=== PATIENT | male | born 1955 | race Caucasian/White ===

== ENCOUNTER → 2018-12-12 | Outpatient (CLI) | payer OTHER ==
[~2018-12-12] MED LIST: ASPIR 8181 MG PO; CENTRUM SILVER1 EAC2 PO; LIPITOR 20 MG T20 M1 PO; TACLONEX OINTME60 GM; [UNRECOGNIZED DRUG - CODE]
== END ==
LOC: ULTRA 09:20
DX: Z01.810 Encounter for preprocedural cardiovascular examination (principal); I35.1 Nonrheumatic aortic (valve) insufficiency

== ENCOUNTER 2018-12-26 05:25 | Inpatient (IN) | payer OTHER ==
[2018-12-12 08:36] LABS: ABSOLUTE NEUTROPHILS 2.5 thou/uL (1.4-8.2); BASOPHILS 0.7 % (0.0-2.0); EOSINOPHILS 3.2 % (0.0-3.0); HEMATOCRIT 45.1 % (42.0-52.0); HEMOGLOBIN 15.8 gm/dL (14.0-18.0); LYMPHOCYTES 39.1 % (24.0-44.0); MCH 31.5 pg (26.0-34.0); MCHC 34.9 g/dL (28.0-37.0); MCV 90.2 fL (80.0-100.0); MONOCYTES 11.1 % (1.0-8.0); PLATELET COUNT 132 thou/uL (150-400); POLYS 45.9 % (36.0-66.0); RDW 13.2 % (10.5-14.5); URINE BILIRUBIN NEGATIVE (Negative); URINE BLOOD NEGATIVE (Negative); URINE CLARITY CLEAR; URINE COLOR YELLOW; URINE GLUCOSE-RANDOM* NEGATIVE (Negative); URINE KETONES NEGATIVE (Negative); URINE LEUKOCYTES-REFLEX NEGATIVE (Negative); URINE NITRITE-REFLEX NEGATIVE (Negative); URINE PROTEIN (DIPSTICK) NEGATIVE (Negative); URINE SPECIFIC GRAVITY 1.025 (1.005-1.035); URINE UROBILINOGEN 0.2 E.U./dl (0.2-1.0); WBC 5.5 thou/uL (4.0-11.0)
[2018-12-12 08:44] LABS: APTT 27.1 Seconds (24.5-32.8); PROTIME 10.4 Seconds (9.3-11.4)
[2018-12-12 08:45] LABS: ALBUMIN 4.1 g/dL (3.4-5.0); CALCIUM 8.7 mg/dL (8.5-10.1); POTASSIUM 4.6 mmol/L (3.5-5.1); TOTAL BILIRUBIN 0.6 mg/dL (<0.1-1.0); TOTAL PROTEIN 6.9 g/dL (6.4-8.2)
--- NOTE | 2018-12-12 09:19 | EKG ---
[place] [address] [place] [address] ELECTROCARDIOGRAM REPORT Name: ZELDACHRISTIANNE JACLYN Room #: PRE IN ..#: [id number] ������������������ Admission: ������������������ Attend Phys: Christianne Evans MD Discharge: ������������������ Date of : 57 Report #: [id number] ����������������������������������������������������������������� [id number] THIS REPORT FOR: //name// [facility] Test Date: 2018-12-12 Test Time: 08:30:59 Pat Name: CHRISTIANNE NDIAYE Department: Room: Gender: [employer]: bobby elizondo : 1955 Requested By: Christianne Evans Order Number: [id number] MD: Kana Louis Measurements Intervals [place] Rate: 75 P: 50 NC: 171 QRS: 24 QRSD: 114 T: 87 QT: 378 QTc: 423 Interpretive Statements Sinus rhythm Nonspecific ST and T wave abnormality No previous ECG available for comparison Electronically Signed On 12-12-2018 9:19:37 CDT by Kana Louis [email or web address] ��������������������������������������������� <ELECTRONICALLY SIGNED> ���������������������������������������� By: Kana Loius MD, [facility] ��������������������������������������������� 12/12/18 0919 0830 0830 Kana Louis MD, FAC /EPI
[2018-12-13 00:07] LABS: GLYCOHEMOGLOBIN (HGB A1C) 6.1 % (4.8-5.6)
[2018-12-26] VITALS (7 sets, daily range): BP systolic 103–146; BP diastolic 33–69
[~2018-12-26] VITALS: Ht 182.9 cm; Wt 120.7 kg
[2018-12-26 11:47] LABS: HEMATOCRIT 34.9 % (42.0-52.0); HEMOGLOBIN 12.1 gm/dL (14.0-18.0); MCH 31.7 pg (26.0-34.0); MCHC 34.6 g/dL (28.0-37.0); MCV 91.6 fL (80.0-100.0); RBC 3.81 mil/uL (4.50-6.00); RDW 13.3 % (10.5-14.5)
[2018-12-26 12:08] LABS: INR 1.4; PROTIME 14.1 Seconds (9.3-11.4)
[2018-12-26 12:55] LABS: POC BE -4 mmol/L (-2.0 to +3.0); POC CA IONIZED 4.3 mg/dL (4.5-5.3); POC GLUCOSE 135 mg/dL (70-99); POC HCO3 23.1 mmol/L (22.0-26.0); POC HEMOGLOBIN 13.3 g/dL (14.0-18.0); POC POTASSIUM 4.5 mmol/L (3.5-5.1); POC SODIUM 141 mmol/L (136-145); POC pCO2 48.4 mmHg (35.0-45.0); POC pH 7.287 (7.360-7.450)
[2018-12-26 12:55] LABS: POC BE -3 mmol/L (-2.0 to +3.0); POC CA IONIZED 4.3 mg/dL (4.5-5.3); POC GLUCOSE 160 mg/dL (70-99); POC HCO3 23.2 mmol/L (22.0-26.0); POC HEMOGLOBIN 11.2 g/dL (14.0-18.0); POC POTASSIUM 4.6 mmol/L (3.5-5.1); POC SODIUM 141 mmol/L (136-145); POC pCO2 44.4 mmHg (35.0-45.0); POC pH 7.326 (7.360-7.450)
[2018-12-26 12:55] LABS: POC BE -1 mmol/L (-2.0 to +3.0); POC CA IONIZED 3.9 mg/dL (4.5-5.3); POC GLUCOSE 133 mg/dL (70-99); POC HCO3 24.3 mmol/L (22.0-26.0); POC HEMOGLOBIN 11.6 g/dL (14.0-18.0); POC POTASSIUM 6.6 mmol/L (3.5-5.1); POC SODIUM 135 mmol/L (136-145); POC pCO2 41.2 mmHg (35.0-45.0)
[2018-12-26 12:55] LABS: POC BE 0 mmol/L (-2.0 to +3.0); POC CA IONIZED 4.6 mg/dL (4.5-5.3); POC GLUCOSE 137 mg/dL (70-99); POC HCO3 25.6 mmol/L (22.0-26.0); POC HEMOGLOBIN 14.3 g/dL (14.0-18.0); POC POTASSIUM 5.3 mmol/L (3.5-5.1); POC SODIUM 139 mmol/L (136-145); POC pCO2 49.2 mmHg (35.0-45.0); POC pH 7.324 (7.360-7.450)
[2018-12-26 12:55] LABS: POC BE -2 mmol/L (-2.0 to +3.0); POC CA IONIZED 3.9 mg/dL (4.5-5.3); POC GLUCOSE 167 mg/dL (70-99); POC HCO3 23.3 mmol/L (22.0-26.0); POC HEMOGLOBIN 12.2 g/dL (14.0-18.0); POC POTASSIUM 5.5 mmol/L (3.5-5.1); POC SODIUM 140 mmol/L (136-145); POC pH 7.395 (7.360-7.450)
[2018-12-26 12:55] LABS: POC BE -1 mmol/L (-2.0 to +3.0); POC CA IONIZED 3.9 mg/dL (4.5-5.3); POC GLUCOSE 136 mg/dL (70-99); POC HCO3 24.1 mmol/L (22.0-26.0); POC HEMOGLOBIN 12.2 g/dL (14.0-18.0); POC POTASSIUM 5.9 mmol/L (3.5-5.1); POC SODIUM 138 mmol/L (136-145); POC pCO2 38.5 mmHg (35.0-45.0); POC pH 7.405 (7.360-7.450)
[2018-12-26 12:55] LABS: POC BE -1 mmol/L (-2.0 to +3.0); POC CA IONIZED 4.5 mg/dL (4.5-5.3); POC GLUCOSE 137 mg/dL (70-99); POC HEMOGLOBIN 13.9 g/dL (14.0-18.0); POC SODIUM 138 mmol/L (136-145); POC pCO2 48.2 mmHg (35.0-45.0); POC pH 7.322 (7.360-7.450)
[2018-12-26 12:55] LABS: POC BE -2 mmol/L (-2.0 to +3.0); POC CA IONIZED 4.1 mg/dL (4.5-5.3); POC GLUCOSE 128 mg/dL (70-99); POC HCO3 23.4 mmol/L (22.0-26.0); POC HEMOGLOBIN 11.9 g/dL (14.0-18.0); POC POTASSIUM 6.6 mmol/L (3.5-5.1); POC SODIUM 136 mmol/L (136-145); POC pCO2 42.9 mmHg (35.0-45.0); POC pH 7.344 (7.360-7.450)
[2018-12-26 12:55] LABS: POC BE 0 mmol/L (-2.0 to +3.0); POC CA IONIZED 3.7 mg/dL (4.5-5.3); POC GLUCOSE 171 mg/dL (70-99); POC HCO3 24.6 mmol/L (22.0-26.0); POC HEMOGLOBIN 12.6 g/dL (14.0-18.0); POC POTASSIUM 5.3 mmol/L (3.5-5.1); POC SODIUM 138 mmol/L (136-145); POC pCO2 38.6 mmHg (35.0-45.0); POC pH 7.412 (7.360-7.450)
[2018-12-26 13:38] LABS: HEMATOCRIT 41.2 % (42.0-52.0); MCV 91.3 fL (80.0-100.0); RBC 4.51 mil/uL (4.50-6.00); RDW 13.4 % (10.5-14.5); WBC 14.9 thou/uL (4.0-11.0)
[2018-12-26 13:39] LABS: BE(vivo) -6.6 mmol/L (-2 to +3); HCO3 21.4 mmol/L (22.0-26.0); PCO2 52.4 mmHg (35.0-45.0); PO2 98.2 mmHg (80.0-100.0); sO2 96.2 % (92.0-98.0)
[2018-12-26 13:40] LABS: pH 7.228 (7.360-7.450)
[2018-12-26 13:54] LABS: INR 1.1; PROTIME 11.9 Seconds (9.3-11.4)
[2018-12-26 14:12] LABS: CREATININE 1.3 mg/dL (0.7-1.3)
[2018-12-26 14:13] LABS: MAGNESIUM 2.5 mg/dL (1.8-2.4)
--- NOTE | 2018-12-26 14:36 | NUR ---
1313-RECEIVED PT FROM O.R. W OPEN HEART TEAM IN ATTENDANCE.--VW 1345-450ML OUT FROM MST'S. INFORMED (VIA ARMANDO IN O.R.) OF BLEEDING.PLAN TO TAKE BACK & EXPLORE. O.R. INFORMED.--VW 1405-OPEN HEART TEAM IN ROOM.--VW 1418-TO O.R. FULLY MONITORED W OPEN HEART TEAM.--VW SUMMARY-PT WOKE SHORTLY AFTER ARRIVAL INTO UNIT.NOT FOLLOWING COMMANDS.BECAME INCREASINGLY RESTLESS,THRASHING HEAD BACK & FORTH.OS SL LARGER THAN OD,BOTH REACTIVE.KNIGHT STRONGLY.CARDENE,PROPOFOL OFF & ON. 2 ALBUMINS GIVEN FOR VOLUME SUPPORT.--VW
[2018-12-26 16:04] LABS: POC BE -8 mmol/L (-2.0 to +3.0); POC CA IONIZED 3.8 mg/dL (4.5-5.3); POC GLUCOSE 175 mg/dL (70-99); POC HCO3 19.3 mmol/L (22.0-26.0); POC HEMOGLOBIN 11.6 g/dL (14.0-18.0); POC POTASSIUM 5.5 mmol/L (3.5-5.1); POC SODIUM 142 mmol/L (136-145); POC pCO2 44.6 mmHg (35.0-45.0); POC pH 7.243 (7.360-7.450)
[2018-12-26 16:04] LABS: POC BE -7 mmol/L (-2.0 to +3.0); POC CA IONIZED 3.8 mg/dL (4.5-5.3); POC GLUCOSE 175 mg/dL (70-99); POC HCO3 20.9 mmol/L (22.0-26.0); POC HEMOGLOBIN 11.9 g/dL (14.0-18.0); POC POTASSIUM 5.2 mmol/L (3.5-5.1); POC SODIUM 143 mmol/L (136-145); POC pCO2 49.6 mmHg (35.0-45.0); POC pH 7.232 (7.360-7.450)
[2018-12-26 16:04] LABS: POC BE -7 mmol/L (-2.0 to +3.0); POC CA IONIZED 4.2 mg/dL (4.5-5.3); POC GLUCOSE 174 mg/dL (70-99); POC HEMOGLOBIN 12.2 g/dL (14.0-18.0); POC POTASSIUM 4.4 mmol/L (3.5-5.1); POC SODIUM 144 mmol/L (136-145); POC pCO2 56.1 mmHg (35.0-45.0); POC pH 7.181 (7.360-7.450)
[2018-12-26 16:54] LABS: BE(vivo) -8.2 mmol/L (-2 to +3); HCO3 18.2 mmol/L (22.0-26.0); PCO2 40.5 mmHg (35.0-45.0); pH 7.271 (7.360-7.450); sO2 96.4 % (92.0-98.0)
[2018-12-26 17:34] LABS: HCO3 19.3 mmol/L (22.0-26.0); PCO2 37.4 mmHg (35.0-45.0); pH 7.331 (7.360-7.450); sO2 97.8 % (92.0-98.0)
--- NOTE | 2018-12-26 19:12 | NUR ---
1635-RECEIVED FROM O.R. W OPEN HEART TEAM IN ATTENDANCE, S/P EXPLORATION OF CHEST.SEE CCFS B/4.--VW 1740-FAMILY IN,LOTS OF TIME EXPLAINING POC.GIVEN SLEEP ROOM FOR THE NIGHT.--VW 1850-WOKE SUDDENLY,THRASHING,WILD,KNIGHT BUT NOT FOLLOWING ANY COMMANDS.FENTANYL GIVEN FOR ? OP PAIN.HEMODYNAMICS STABLE. CARE TURNED OVER TO ONCOMING RN.--VW
--- NOTE | 2018-12-26 19:31 | NUR ---
IN,UPDATED.--VW
[2018-12-26 21:03] LABS: HEMATOCRIT 34.9 % (42.0-52.0)
[2018-12-26 21:11] LABS: BE(vivo) -3.8 mmol/L (-2 to +3); HCO3 20.7 mmol/L (22.0-26.0); PCO2 35.9 mmHg (35.0-45.0); PO2 104.2 mmHg (80.0-100.0); pH 7.379 (7.360-7.450); sO2 97.7 % (92.0-98.0)
[2018-12-26 23:32] LABS: BE(vivo) -4.9 mmol/L (-2 to +3); PCO2 36.7 mmHg (35.0-45.0); PO2 82.7 mmHg (80.0-100.0); pH 7.354 (7.360-7.450); sO2 95.8 % (92.0-98.0)
[2018-12-27 01:01] LABS: HCO3 21.6 mmol/L (22.0-26.0); PCO2 41.4 mmHg (35.0-45.0); PO2 64.3 mmHg (80.0-100.0); pH 7.335 (7.360-7.450); sO2 91.3 % (92.0-98.0)
[2018-12-27 06:01] LABS: HEMATOCRIT 32.4 % (42.0-52.0); HEMOGLOBIN 11.3 gm/dL (14.0-18.0); MCH 31.9 pg (26.0-34.0); MCHC 34.9 g/dL (28.0-37.0); MCV 91.6 fL (80.0-100.0); RBC 3.54 mil/uL (4.50-6.00); RDW 13.7 % (10.5-14.5); WBC 9.2 thou/uL (4.0-11.0)
[2018-12-27 06:16] LABS: CALCIUM 7.1 mg/dL (8.5-10.1); CREATININE 1.2 mg/dL (0.7-1.3); MAGNESIUM 1.9 mg/dL (1.8-2.4); POTASSIUM 4.6 mmol/L (3.5-5.1)
[2018-12-27 06:25] LABS: CHOLESTEROL 114 mg/dL (<200); HDL CHOLESTEROL 32 mg/dL (>40); LDL CHOLESTEROL 64 mg/dL (<100); TC:HDL 3.6 Ratio (Not establshd); TRIGLYCERIDE 93 mg/dL (<150); VLDL 19 mg/dL (<40)
[2018-12-27 06:26] LABS: SERUM ASSESSMENT Clear
--- NOTE | 2018-12-27 06:35 | NUR ---
Pt progressing well with stable VS and adequate SpO2 on current FiO2. PRN fentanyl and hydrocodones given for c/o chest "soreness" with desired effect achieved. Large amount of chest tube drainage for shift and am lab results noted. Urine output adequate for shift. PRN zofran given for c/o intermittent nausea with desired effect achieved. Continue with POC.
[2018-12-27 07:53] VITALS: BP 104/65
--- NOTE | 2018-12-27 08:24 | EKG ---
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 WARD : 1955 Requested By: Johnny Arellano Order Number: [id number] MD: Kana Louis Measurements Intervals [place] Rate: 86 P: 64 [place]: 153 QRS: 39 QRSD: 101 T: 69 QT: 455 QTc: 545 Interpretive Statements Sinus rhythm Abnormal R-wave progression, early transition Prolonged QT interval Compared to ECG 12/12/2018 08:30:59 Prolonged QT interval now present Electronically Signed On 12-27-2018 8:23:57 CDT by Kana Louis [email or web address] ��������������������������������������������� <ELECTRONICALLY SIGNED> ���������������������������������������� By: Kana Louis MD, [facility] ��������������������������������������������� 12/27/18822 10 10 Kana Louis MD, [facility] /EPI
--- NOTE | 2018-12-27 08:31 | EKG ---
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1955 Requested By: Johnny Arellano Order Number: [id number] MD: Kana Louis Measurements Intervals [place] Rate: 89 P: 46 [place]: 134 QRS: 5 QRSD: 93 T: 1 QT: 374 QTc: 456 Interpretive Statements Sinus rhythm Ventricular premature complex Abnormal R-wave progression, early transition Left ventricular hypertrophy Nonspecific T wave abnormality Compared to ECG 12/12/2018 08:30:59 Ventricular premature complex(es) now present nonspecific change in the ST and T-wave segments Electronically Signed On 12-27-2018 8:31:44 CDT by Kana Louis [email or web address] ��������������������������������������������� <ELECTRONICALLY SIGNED> ���������������������������������������� By: Kana Louis MD, [facility] ��������������������������������������������� 12/27/18 0831 0741 0741 Kana Louis MD, [facility] /EPI
[2018-12-27 08:49] LABS: HEMATOCRIT 31.8 % (42.0-52.0); MCH 31.9 pg (26.0-34.0); MCHC 34.4 g/dL (28.0-37.0); MCV 92.5 fL (80.0-100.0); RBC 3.44 mil/uL (4.50-6.00); RDW 13.4 % (10.5-14.5); WBC 10.9 thou/uL (4.0-11.0)
[2018-12-27 08:59] LABS: APTT 26.8 Seconds (24.5-32.8); PROTIME 10.8 Seconds (9.3-11.4)
--- NOTE | 2018-12-27 09:27 | NUR ---
Nutrition: Pt POD 1 AVR. Consult received for diet education. RD will followup to determine education needs when out of ICU.
--- NOTE | 2018-12-27 15:32 | NUR ---
PT UP TO CHAIR THIS AM, TOLERATED WELL. HAVING SOME SANGUOINOUS DRAINAGE AROUND CHEST TUBE INSERTION SITES LEFT>RIGHT. SHORTLY AFTER GETTING UP, PT WAS BELCHING C/O NAUSEA AND BEGAN TO DRY HEAVE. PT BECAME RED IN THE FACE AND BECAME APNEIC AND NONRESPONSIVE. CODE BLUE INITIATED AND APPROX 5 SECONDS LATER PT WAS BREATHING AND BEGAN HAVING SZ LIKE ACTIVITY AND THEN WENT INTO POST-ICTAL SNORE, 15L NONREBREATHING APPLIED TO PT. PT WOKE UP AND ORIENTED APPROX 2 MINUTES LATER. IT APPEARS THAT PT VASO-VAGALED AND CAUSE TRANSIENT DROP IN BLOOD PRESSURE. 500 IV ALBUMIN GIVEN, VITALS IMPROVED. DR BARCENAS, MICHELE FOSTER, AND DR JAY AT BEDSIDE AFTER CODE BLUE CALLED, ORDERS RECEIVED AND IMPLEMENTED.
[2018-12-27 16:40] LABS: HEMATOCRIT 30.1 % (42.0-52.0); HEMOGLOBIN 10.5 gm/dL (14.0-18.0); MCHC 34.9 g/dL (28.0-37.0); MCV 91.6 fL (80.0-100.0); RBC 3.29 mil/uL (4.50-6.00); RDW 13.9 % (10.5-14.5); WBC 9.8 thou/uL (4.0-11.0)
[2018-12-27 16:49] LABS: APTT 28.2 Seconds (24.5-32.8); INR 1.1
--- NOTE | 2018-12-27 18:18 | NUR ---
PT HAD REPEAT EPISODE OF SITTING UP AT EDGE OF CHAIR BEGAN HICCUPS, BELCHES AND BECAME NAUSEAOUS. PT BEGAN DRY HEAVING AND SUSPECTEDLY VASO-VAGALED THEN BECAME UNRESPONSIVE WITH SHORT SZ LIKE ACTIVITY AND THEN POST-ICTAL STATE REQUIRING NONREBREATHER APPLIED. PT AWOKE AFTER APPROX ONE MINUTE, A/O X 4 BUT DROWSY. ONCE FULLY AWAKE NONREBREATHER REMOVED, PT REMAINS ON 15L HFNC. ONE ALBUMIN GIVEN FOR BP SUPPORT. PT C/O STERNAL PAIN UNRELIEVED BY IV FENTANYL. NEW ORDERED FOR SCHEDULED IV TYLENOL. CHANGE OF CONDITION REPORTED TO CV NURSE MINH AND PT SEEN BY DR BARCENAS AND MICHELE ROBERTS.
--- NOTE | 2018-12-28 01:29 | NUR ---
ASSUMED CARE OF PT AT 1900. 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 PT SITTING IN CHAIR FOR THIS REASON, AT 2330 PT GOT UP WITH ASSIST X2 STAFF TO THE BED. PT WAS PREVIOUSLY MEDICATED WITH ZOFRAN. PT TOLERATED TRANSFER WELL. WILL CONTINUE TO MONITOR.
[2018-12-28 05:21] LABS: HEMATOCRIT 28.6 % (42.0-52.0); HEMOGLOBIN 9.8 gm/dL (14.0-18.0); MCH 31.5 pg (26.0-34.0); MCHC 34.3 g/dL (28.0-37.0); RBC 3.11 mil/uL (4.50-6.00); RDW 13.6 % (10.5-14.5); WBC 10.8 thou/uL (4.0-11.0)
[2018-12-28 05:33] LABS: CALCIUM 7.4 mg/dL (8.5-10.1); POTASSIUM 4.2 mmol/L (3.5-5.1)
--- NOTE | 2018-12-28 08:29 | NUR ---
CM ASSESSMENT: CASE OPENED FOR DC PLANNING. CLINICAL INFO REVIEWED. PT IS POD #2 AVR. LIVES IN HOUSE WITH SPOUSE, INDEPENDENT WITH ADLS, NO DME OR PREVIOUS HH. PT RECENTLY RETIRED. WORKING WITH PT/OT AND WILL FOLLOW TO COORDINATE ANY DC NEEDS. LIKELY HOME WITH NO NEEDS AT DC.
[2018-12-28 08:41] VITALS: BP 131/73
--- NOTE | 2018-12-28 10:00 | NUR ---
Pt was assisted up to the bedside chair without incident. Pt was premedicated with Zofran and IV Tylenol for pain/nausea prior to getting out of bed. Pt reported decrease in pain and increased relaxation followig the medications. Pt able to eat a portion of his breakfast. Pt working on his IS-max volume 750 ml.
--- NOTE | 2018-12-28 14:15 | NUR ---
Pt was assisted back to bed for removal of mediastinal tubes by Jerry (PA with Dr Evans). Pacemaker wires also removed. Remains on 10 liter high flow nasal cannula.
--- NOTE | 2018-12-28 15:45 | NUR ---
Pt had rhythm change to atrial fibrillation with RVR. Dr Barreto at bedside. Cardizem 5 mg bolus was given IV (see emar) to be followed by Cardizem gtt. Pt placed on BIPAP by RT. Pt had been placed on Optiflow following the removal of mediastinal tubes (60% FIO2 and 50 liters). Pt reporting mild chest discomfort at this time-Dr Evans aware.
--- NOTE | 2018-12-28 16:17 | NUR ---
AT BEDSIDE.CARDIZEM GTT UP TO 20MG/HR,AMIO GTT ORDERED.PT JOSE ANGEL BIPAP.--VW
[2018-12-28 16:18] VITALS: BP 131/73
--- NOTE | 2018-12-28 16:40 | O ---
[facility] [place] [address] OPERATIVE REPORT Name: CHRISTIANNE NDIAYE Room #: 247-P [facility] IN M.R.#: [id number] Admission: 12/26/18 ������������������ Attend Phys: Chirstianne Evans MD Discharge: ������������������ Date of : 57 Report #: [id number] THIS REPORT FOR: //name// CC: Christianne Arrington DATE OF SERVICE: 12/26/2018 PREOPERATIVE DIAGNOSIS: Bleeding, status post cardiac surgery. POSTOPERATIVE DIAGNOSIS: Bleeding, status post cardiac surgery. OPERATION: Exploration for bleeding. INDICATION: The patient, earlier in the day, had an aortic valve replacement. Unfortunately in the ICU, he had excessive chest tube drainage that mandated reexploration. The patient was taken to the operating room and prepped and draped. The incision was opened. There was some blood and clot in the mediastinum. There was no obvious source for this. The most impressive bleeder was an area of specific ooze from the posterior sternum on the left side. The patient gave the impression that he had a coagulopathic bleed and platelets and plasma were given. This improved the situation immensely. Blood and clot were extracted and the chest was irrigated. The chest was packed until we were confident that there were no sites of bleeding and then, the wound was irrigated and then closed in the usual fashion. The patient was returned to the Intensive Care Unit in satisfactory condition. All counts were reported as correct. ��������������������������������������������� <ELECTRONICALLY SIGNED> ���������������������������������������� By: Christianne Evans MD ��������������������������������������������� 12/28/18 1640 27 50 Christianne Evans MD /nt
--- NOTE | 2018-12-28 16:40 | O ---
[facility] [place] [address] OPERATIVE REPORT Name: CHRISTIANNE NDIAYE Room #: 247-P [facility] IN M.R.#: [id number] Admission: 12/26/18 ������������������ Attend Phys: Christianne Evans MD Discharge: ������������������ Date of : 57 Report #: [id number] THIS REPORT FOR: //name// CC: Christianne Guillen Nury DATE OF SERVICE: 12/26/2018 PREOPERATIVE DIAGNOSIS: Aortic valve incompetence of a bicuspid valve. POSTOPERATIVE DIAGNOSIS: Aortic valve incompetence of a bicuspid valve. OPERATION: Aortic valve replacement with 27 mm Beto-Nagel bioprosthesis. SURGEON: Christianne Evans MD. FAMILY SOCIOLOGIST: Jerry Arellano. ANESTHESIA: General. INDICATIONS: The patient is a 63-year-old with aortic incompetence and progressive shortness of breath. Echo shows a bicuspid aortic valve with important aortic incompetence. The coronary arteries are satisfactory. Catheterization was done by Dr. Christianne Zee. FINDINGS AND TECHNIQUE: After general anesthesia was established, exposure was obtained through median sternotomy. Pericardial well was made. Cannulation sutures were placed. Heparin was given. Aorta was cannulated. Right atrium was cannulated. Cardioplegia needle was positioned in the aortic root. Retrograde cardioplegic catheter was placed in coronary sinus. Cardiopulmonary bypass was established. The aorta was cross clamped. Antegrade and retrograde cardioplegia were given. Ice was poured in the pericardial well. The heart was stopped. During electromechanical arrest, the aortic valve was replaced and aortotomy was made. The bicuspid valve was excised. Interrupted Ethibond sutures were placed sequentially through the yerington annulus and then through the sewing ring of a 27 mm Beto-Nagel bioprosthesis chosen for both annular and patient's size. The valve was lowered into place and the sutures were secured with the Cor-Knot device. It should be mentioned that cardioplegia was given every 15 minutes through the retrograde cannula and directly into the right coronary artery. When the aortic valve was replaced, the aortotomy was closed with 2-layer [address] [address] OPERATIVE REPORT Name: ZELDACHRISTIANNE JACLYN Room #: 247-P [facility] IN M.R.#: [id number] Admission: 12/26/18 ������������������ Attend Phys: Christianne Evans MD Discharge: ������������������ Date of : 57 Report #: [id number] technique. Warm retrograde cardioplegia was given followed by warm continuous blood to the coronary sinus. When this infusion was complete, the crossclamp was removed, de-airing maneuvers were performed. The aortotomy was inspected and found to be satisfactory. Chest tubes and pacing wires were placed. When the patient was warmed, he was weaned from cardiopulmonary bypass. Venous cannula was removed. Protamine was given. Aortic cannula was removed. When hemostasis was satisfactory, chest was closed in the usual fashion. The patient was taken to the Intensive Care Unit, having tolerated the procedure well. All counts reported as correct. ��������������������������������������������� <ELECTRONICALLY SIGNED> ���������������������������������������� By: Christianne Evans MD ��������������������������������������������� 12/28/18 1640 25 38 Christianne Evans MD /nt
--- NOTE | 2018-12-28 19:15 | NUR ---
Pt remains in atrial fibrillation with RVR. Cardizem at 20 mg/hr titrated down to 15 mg/hr for systolic BP's dropping into 80-90s. Amiodarone gtt is at 1 mg/hr. Pt remains on BIPAP. Report given to LEIGHTON Montelongo assuming care.
[2018-12-29 05:42] LABS: HEMATOCRIT 27.9 % (42.0-52.0); HEMOGLOBIN 9.6 gm/dL (14.0-18.0); MCH 31.7 pg (26.0-34.0); MCHC 34.2 g/dL (28.0-37.0); MCV 92.7 fL (80.0-100.0); RBC 3.01 mil/uL (4.50-6.00); RDW 13.9 % (10.5-14.5); WBC 9.7 thou/uL (4.0-11.0)
[2018-12-29 05:58] LABS: CALCIUM 8.2 mg/dL (8.5-10.1); POTASSIUM 4.1 mmol/L (3.5-5.1)
--- NOTE | 2018-12-29 06:35 | NUR ---
PT RESTING COMFORTABLE AND REQUIRING SEVERAL DOSES OF PAIN MEDICATION. REMAINS ON BIPAP 45% FIO2. PT CONVERTED FROM AFIB AROUND 0100 AND NOW SR 70s. PT REMAINS ON AMIO GTT AND GOING TO TITRATE CARDIZEM GTT OFF.
--- NOTE | 2018-12-29 12:05 | PATH ---
[facility] [address] [place] [address] PATHOLOGY RPT PROCEDURE Name: CHRISTIANNE NDIAYE Room #: 247-P [facility] IN M.R.#: [id number] ������������������ Admission: 12/26/18 ������������������ Date of : 57 Discharge: Report #: [id number] Path Case #: [id number] [facility] Accession Number: [id number] . 01 Material submitted: . aortic body - AORTIC VALVE . 01 Clinical history: . Aortic insufficiency . 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 (IUV:mary alice; 12/28/2018) QMS/12/28/2018 . 02 Electronically signed: . Henny Singh MD, Pathologist NPI- [id number] . 01 Gross description: . The specimen is received in formalin, labeled "Christianne Ndiaye, aortic valve", are 3 white-yellow fragments of leaflet ranging from 1.0 up to 4.4 cm in greatest dimension and measuring 4.4 x 1.4 x 0.7 cm in aggregate. The largest fragment shows yellow streaks and a focal irregular area of possible with calcifications. X Ray Technician tissue is submitted in A1 after decalcification. (SWS; 12/26/2018) SHS/SHS . 02 Pathologist provided ICD-10: I35.8 . 02 CPT . 429868, [id number] Specimen Comment: A courtesy copy of this report has been sent to Specimen Comment: [phone], . Specimen Comment: Report sent to / DR CASTELLANOS Performed at: [address], [place] [id number] MD Donny Gallagher MD Phone: [phone] Performed at: [address] [id number] MD Henny Singh MD Phone: [phone]
[2018-12-29 12:12] VITALS: BP 119/58
[2018-12-29 13:17] LABS: PROTIME 10.3 Seconds (9.3-11.4)
--- NOTE | 2018-12-29 18:15 | NUR ---
BIPAP OFF SINCE 829 THIS AM. O2 SAT STABLE ON NC. REMAINS ON AMIO GTT. ORDER CLARIFIED PER DR JACOBSON HE IS TO REMAIN ON AMIO GTT OVERNIGHT IN ADDITION TO ORDERED PO AMIO. PT REMAINS IN NSR. BP STABLE. PADMINI IN PLACE. AMBULATING IN HALLWAY WITH PHYISICAL THERAPY. TOLERATING PO WELL. PT'S FAMILY AT BEDSIDE. WILL CONTINUE TO MONITOR PATIENT.
--- NOTE | 2018-12-29 22:25 | NUR ---
REPORT GIVEN TO CHANDNI MANZANARES. DISCUSSED POC.
[2018-12-30] VITALS (10 sets, daily range): BP systolic 109–131; BP diastolic 50–74
[2018-12-30 06:13] LABS: HEMATOCRIT 27.5 % (42.0-52.0); HEMOGLOBIN 9.6 gm/dL (14.0-18.0); MCH 31.9 pg (26.0-34.0); MCHC 34.8 g/dL (28.0-37.0); MCV 91.5 fL (80.0-100.0); RBC 3.01 mil/uL (4.50-6.00); RDW 13.9 % (10.5-14.5); WBC 9.1 thou/uL (4.0-11.0)
--- NOTE | 2018-12-30 06:21 | NUR ---
Assumed care at 2300 last pm and pt slept in chair all night. VS remain stable and SpO2 adequate on current FiO2. PRN hydrocodones given last pm with desired effect achieved. Voiding large amounts per urinal independently. Am lab results pending, continue with POC.
[2018-12-30 06:25] LABS: CALCIUM 8.3 mg/dL (8.5-10.1); CREATININE 1.1 mg/dL (0.7-1.3); POTASSIUM 3.7 mmol/L (3.5-5.1)
--- NOTE | 2018-12-30 17:30 | NUR ---
PT PROGRESSED TODAY. PAIN CONTROLLED WITH PO PAIN MEDS, AMBULATED IN [place] X 2 WITH PHYSICAL THERAPY, SR, PADMINI DC'D IN AM, INTRODUCER DC'D JUST PRIOR TO TRANSFER TO CCU, TAKING DEEP BREATHS AND/OR USING INCENTIVE SPIROMETER, 2L/NC WITH BUBBLER, HAS AN EPISODE OF NAUSEA RELIEVED BY ZOFRAN, VOIDING ADEQUATE AMOUNT PER URINAL. SEE ASSESSMENT FOR DETAILS. FAMILY PRESENT INTERMITTENTLY, PROVIDING SUPPORT TO PT. REPORT GIVEN TO LEIGHTON SHETH AT 1233. PT TRANSFERRED TO CCU RM# 201 ON FOREIGN CAR MECHANIC WITH 02.
[2018-12-31] VITALS: BP 119/69
--- NOTE | 2018-12-31 03:48 | NUR ---
ASSUMED PT CARE AT 1900. VSS PT A&0X4. PT SLEP IN CHAIR ALL NIGHT, RATED PAIN AT 3/10. PT STILL HAS SOME EDEMA IN HIS RIGHT LEG MAINTAINS STERNAL PRECAUTIONS WITH ACTIVITY; IT IS STAND BY ASSIST WITH A WALKER. NO COMPLAINTS OF DISTRESS. PT IS STABLE, SR ON THE MONITOR, BLOOD SUGAR UNDER 150 LAST NIGHT, NO COVERAGE NEEDED, NO BM YET BUT PT IS PASSING GAS. MIDSTERNAL DRESSING IS CDI, PROGRESSING WELL TOWARDS DISCHARGE GOALS, WILL CONTINUE TO MONITOR PER POC.
[2018-12-31 04:00] VITALS: BP 118/74
[2018-12-31 06:09] LABS: PROTIME 10.2 Seconds (9.3-11.4)
[2018-12-31 07:15] VITALS: BP 118/71
[2018-12-31 11:10] VITALS: BP 124/70
--- NOTE | 2018-12-31 11:56 | NUR ---
Nutrition: POD 5 AVR. Met with pt to determine education needs. Pt voices good understanding of heart healthy diet as he and try to follow at home. Has read through the education materials and voices no questions at this time. Appetite returning. No other needs voiced. Consider low risk.
--- NOTE | 2018-12-31 15:33 | NUR ---
PATIENT CONT TO PROGRESS TOWARDS DISCHARGE GOALS AT THIS TIME. HE AMBULATES WITH STEADY GAIT. ON ROOM AIR AT THIS TIME AND OXYGEN SATS HAVE REMAINED ABOVE 90%. HE IS VERY MOTIVATED TO PROGRESS. FOLLOW PLAN OF CARE. INCISION REMAINS INTACT TO MIDCHEST. WILL CONT WITH PLAN OF CARE.
[2018-12-31 15:45] VITALS: BP 126/70
[2018-12-31 19:57] VITALS: BP 119/68
[2019-01-01 03:11] LABS: PROTIME 10.3 Seconds (9.3-11.4)
[2019-01-01 03:33] VITALS: BP 117/64
[2019-01-01 07:05] VITALS: BP 128/83
--- NOTE | 2019-01-01 09:05 | EKG ---
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 : 1955 Requested By: Johnny Arellano Order Number: [id number] MD: Kana Louis Measurements Intervals [place] Rate: 65 P: 40 [place]: 172 QRS: 9 QRSD: 113 T: 16 QT: 532 QTc: 554 Interpretive Statements Sinus rhythm Abnormal R-wave progression, early transition Nonspecific ST and T wave abnormality Prolonged QT interval Compared to ECG 12/27/2018 07:41:55 Prolonged QT interval now present Ventricular premature complex(es) no longer present Electronically Signed On 01-01-2019 9:05:29 CDT by Kana Louis [email or web address] ��������������������������������������������� <ELECTRONICALLY SIGNED> ���������������������������������������� By: Kana Louis MD, [facility] ��������������������������������������������� 01/01/19 0905 0857 0857 Kana Louis MD, [facility] /EPI
[2019-01-01 11:15] VITALS: BP 126/69
--- NOTE | 2019-01-01 12:30 | NUR ---
Assumed care of pt at 0700. Pt a&ox4. No c/o pain. Dressing clean and intact. Up ad bessy. Steady gait. Room air. Will discharge home today. Awaiting discharge orders. Call light within reach. Will continue to monitor.
[2019-01-01] MEDS ORDERED: FERREX 150 PLU1 EAC1 PO (13:14)
[2019-01-01] MEDS ORDERED: PACERONE 200 M200 M1 PO (13:14)
[2019-01-01] MEDS ORDERED: MIRALAX17 GM PO (13:14)
[2019-01-01] MEDS ORDERED: MELATONIN3 MG PO (13:14)
[2019-01-01] MEDS ORDERED: PEPCID20 MG PO (13:14)
[2019-01-01] MEDS ORDERED: HYDROCODON-ACE1 EAC7 PO (13:15)
[2019-01-01] MEDS ORDERED: COUMADIN 5 MG TA5 M1 PO (14:08)
[2019-01-01 14:12] VITALS: BP 126/69
--- NOTE | 2019-01-05 13:02 | HC ---
[facility] [place] [address] CONSULTATION Name: CHRISTIANNE NDIAYE Room #: 201-P [facility] M.R.#: [id number] Admission: 12/26/18 ������������������ Attend Phys: Christianne Evans MD Discharge: 01/01/19 ������������������ Date of : 57 Report #: [id number] THIS REPORT FOR: //name// CC: Christianne Guillen Nury DATE OF SERVICE: 12/27/2018 INPATIENT CONSULTATION REQUESTING PHYSICIAN: Christianne Evans M.D. CHIEF COMPLAINT: Postoperative aortic valve replacement. HISTORY OF PRESENT ILLNESS: The patient is a 63-year-old man with a history of aortic valve regurgitation and remote endocarditis and a bicuspid aortic valve, who underwent elective aortic valve replacement yesterday. He did have some postoperative bleeding, which had to be addressed. This morning, he was doing well. He had an episode of lightheadedness after getting out of bed to a chair, but vital signs were stable and he was alert and oriented. No complaints of chest pain. His Tele remains sinus rhythm. He has no other complaints. He is on high-flow oxygen via facemask, but had been extubated yesterday. PAST MEDICAL HISTORY: He has remote history of aortic valve endocarditis and a bicuspid aortic valve. He has a history of normal coronary arteries and normal LV systolic function and he has hyperlipidemia. MEDICATIONS: His only home medications included a statin and aspirin. 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 He has no tobacco or ethanol history. REVIEW OF SYSTEMS: GENERAL: No complaints of fevers or chills. CARDIOVASCULAR: No chest pain. NEUROLOGIC: Positive near syncope, as noted above. HEMATOLOGIC: Positive anemia. RENAL: No history of kidney failure. SKIN: No rashes. PHYSICAL EXAMINATION: VITAL SIGNS: Blood pressure is 90-110/50. He is in a sinus rhythm, 90s. O2 sat on 6 liters is 95%. GENERAL: This is an obese, middle-aged male. He is alert, in no apparent distress. [facility] [address] [place] [address] CONSULTATION Name: CHRISTIANNE NDIAYE Room #: 201-P [facility] M.R.#: [id number] Admission: 12/26/18 ������������������ Attend Phys: Christianne Evans MD Discharge: 01/01/19 ������������������ Date of : 57 Report #: [id number] HEENT: Eyes, EOMs intact. No facial asymmetry. NECK: Supple. No jugular venous distention. CARDIOVASCULAR EXAMINATION: Regular. I cannot hear a rub or gallop. LUNGS: Clear to auscultation, diminished breath sounds. ABDOMEN: Nontender, obese. EXTREMITIES: Wearing SCDs, trace edema. LABORATORY DATA: Hemoglobin is 11.0, white blood count is 10.9 and platelet count is 139,000. INR is 1.0. Sodium is 142, potassium is 4.6, BUN is 19 and creatinine is 1.2. Chest x-ray today shows stable cardiomegaly, without consolidation, effusion or pneumothorax. IMPRESSION: 1. Status post aortic valve replacement. He has a Beto-Nagel bioprosthesis implanted yesterday and doing well postoperatively. He has been extubated. He did have an episode of hypotension, which was probably vasovagal this morning. He will receive volume. His hemodynamic parameters and cardiac outputs are stable. 2. Vasovagal syncope, as above. 3. Hyperlipidemia. ��������������������������������������������� <ELECTRONICALLY SIGNED> ���������������������������������������� By: Tulio Salinas MD, FACC ��������������������������������������������� 01/05/19 1302 0904 [id number] Tulio Salinas MD, FACC /nt
== END 2019-01-01 15:45 | disposition home or self-care (01) | DRG 221 ==
LOC: ICU 05:25 → TBA 05:25 → PRE 05:59 → ICU 13:59 → 2N 12-30 17:32
PROVIDERS: Hospitalist; Nurse Practitioner Family; Physician Assistant; ADMIT Surgery Vascular Surgery
DX: I35.1 Nonrheumatic aortic (valve) insufficiency (principal); E78.5 Hyperlipidemia, unspecified; I95.9 Hypotension, unspecified; E66.9 Obesity, unspecified; E86.1 Hypovolemia; G47.33 Obstructive sleep apnea (adult) (pediatric); J98.4 Other disorders of lung; D64.9 Anemia, unspecified; Z79.899 Other long term (current) drug therapy; Z79.82 Long term (current) use of aspirin; Z88.6 Allergy status to analgesic agent; Z68.36 Body mass index [BMI] 36.0-36.9, adult; Z82.3 Family history of stroke; Z82.0 Family history of epilepsy and other diseases of the nervous system; Z82.49 Family history of ischemic heart disease and other diseases of the circulatory system; I48.91 Unspecified atrial fibrillation
CPT/HCPCS: 10078; 10081; 47000; 47001; 47002; 47297; 47335; 47382; 48888; 50101; 50409; 50456; 50497; 51932; 52131; 52259; 52314; 53327; 53358; 54118; 56524; 56525; 56526; 56527; 56528; 56531; 56534; 56668; 57080; 57081; 57082; 57092; 57093; 57115; 57225; 62110; 62950; 65003; 65020; 65047; 65090; 65135

== ENCOUNTER → 2019-01-17 | Outpatient (CLI) | payer OTHER ==
[~2019-01-17] MED LIST changes: +COUMADIN 5 MG TA5 M1 PO; +FERREX 150 PLU1 EAC1 PO; +HYDROCODON-ACE1 EAC7 PO; +MELATONIN3 MG PO; +MIRALAX17 GM PO; +PACERONE 200 M200 M1 PO; +PEPCID20 MG PO
== END ==
LOC: RAD 09:33
DX: I51.7 Cardiomegaly (principal); Z95.2 Presence of prosthetic heart valve